=== PATIENT | female | born 1995 | race Caucasian/White ===

== ENCOUNTER 2017-07-13 08:33 | Observation (INO) | payer OTHER ==
--- NOTE | 2017-07-07 10:27 | HISTORY AND PHYSICAL E ---
History and Physical NAME: RONI METZGER : 1995 AGE: 22Y ADMITTED: 07/13/2017 ROOM: HISTORY OF PRESENT ILLNESS: The patient, 22 years old, presented with a chief complaint of blood in the stool, hemorrhoids, diarrhea, left lower quadrant abdominal pain, bloating. PAST SURGICAL HISTORY: Negative. MEDICATIONS: 1. Celexa. 2. Naproxen. 3. The patient takes control. 4. Ibuprofen. SOCIAL HISTORY: Tobacco: She dips. Alcohol: Negative. FAMILY HISTORY: Father is alive, history is unknown. Mom is alive. REVIEWING OF SYSTEMS: HEAD, EYES, EARS, NOSE, THROAT: Eye glasses. RESPIRATORY: Negative. CARDIAC: Negative. GASTROINTESTINAL: Diarrhea. Right-side abdominal pain, hemorrhoid, bloating, blood in the stool. NEUROPSYCHIATRIC: Anxiety, depression, insomnia. PHYSICAL EXAMINATION: GENERAL: Pleasant, alert, oriented. VITAL SIGNS: Blood pressure 90/60, pulse 70, temperature is 98. HEAD, EYES, EARS, NOSE, THROAT: Normal. NECK: Supple. CARDIOVASCULAR: Normal. LUNGS: Clear. ABDOMEN: Soft. NEUROLOGIC: Negative. CONCLUSION: 1. Diarrhea. 2. Hemorrhoid. 3. Abdominal pain. PLAN: Colonoscopy to be done in the OR with anesthesia standby. Gallbladder ultrasound. DICTATING PHYSICIAN: OMAR TARANGO M.D. [id number] Y#: [id number] ID: [id number] JOB#: [id number] ACCT: [id number] cc:OMAR TARANGO M.D. >
[2017-07-10 11:15] LABS: HEMATOCRIT 42.6 % (36.0-47.0); HEMOGLOBIN 14.4 g/dL (12.0-15.5); HGB HCT DIFFERENCE 0.6; MEAN CORPUSCULAR HEMOGLOBIN 30.1 pg (27.0-33.4); MEAN CORPUSCULAR HGB CONC 33.8 g/dL (32.0-36.0); MEAN CORPUSCULAR VOLUME 89 fl (80-97); RED BLOOD COUNT 4.78 10^6/uL (3.72-5.28); RED CELL DISTRIBUTION WIDTH 12.6 % (11.5-14.0); WHITE BLOOD COUNT 5.4 10^3/uL (4.0-10.5)
[~2017-07-13 08:33] MED LIST: GLUCAGON,HUMAN RECOMB 1 MG INJ ONE; LIDOCAINE 0.5% INJ-PF (5 MG/ML) 50 ML SDV SUBCUT PRN; LIDOCAINE 2% JELLY 30 ML TUBE ONE; RINGERS SOLUTION,LACTATED 1,000 ML IV PRN
[2017-07-13] MEDS ORDERED: MIDAZOLAM 2 MG/2 ML INJ ONE (10:46)
[2017-07-13] MEDS ORDERED: FENTANYL CITRATE INJ/PF 100 MCG/2 ML AMPUL ONE (10:46)
[2017-07-13] MEDS ORDERED: PROPOFOL INJ 200 MG/20 ML VIAL IV ONE (10:47)
[2017-07-13] MEDS ORDERED: DIPHENHYDRAMINE HCL 50 MG/ML VIAL IV PRN (10:49)
[2017-07-13] MEDS ORDERED: MEPERIDINE HCL/PF INJ 25 MG/1 ML DISP.SYRIN IV PRN (10:49)
[2017-07-13] MEDS ORDERED: OXYCODONE-ACETAMINOPHEN 5-325 MG TABLET PO PRN ×2 (10:49)
[2017-07-13] MEDS ORDERED: FENTANYL CITRATE INJ/PF 100 MCG/2 ML AMPUL IV PRN ×3 (10:49)
[2017-07-13] MEDS ORDERED: MORPHINE SULFATE 10 MG/ML INJ IV PRN (10:49)
[2017-07-13] MEDS ORDERED: PROMETHAZINE HCL INJ 25 MG/1 ML VIAL IV PRN ×3 (10:49→12:00)
[2017-07-13] MEDS ORDERED: LIDOCAINE 2% VISCOUS SOLN 20 ML UDCUP PO PRN (11:43)
[2017-07-13] MEDS ORDERED: ACETAMINOPHEN 325 MG TABLET PO PRN (11:43)
[2017-07-13] MEDS: FENTANYL CITRATE INJ/PF 100 MCG/2 ML AMPUL ONE ×2 (11:48→11:53)
[2017-07-13] MEDS ORDERED: LIDOCAINE 2% INJ-PF (20 MG/ML) 10 ML AMPUL ONE (12:00)
[2017-07-13] MEDS ORDERED: ONDANSETRON HCL INJ/PF 4 MG/2 ML SDV ONE (12:00)
[2017-07-13] MEDS ORDERED: SIMETHICONE 80 MG TAB.CHEW PO PRN (12:00)
[2017-07-13] MEDS ORDERED: GLYCOPYRROLATE INJ 0.4 MG/2 ML VIAL ONE (12:00)
[2017-07-13] MEDS ORDERED: LIDOCAINE 2% JELLY 5 ML TUBE PR ONE (13:30)
[2017-07-13 13:50] LABS: ABSOLUTE EOSINOPHILS # (AUTO) 0.1 10^3/uL (0.0-0.6); ABSOLUTE LYMPHOCYTES (AUTO) 2.5 10^3/uL (0.5-4.7); ABSOLUTE MONOCYTES (AUTO) 0.5 10^3/uL (0.1-1.4); ABSOLUTE NEUT (AUTO) 4.6 10^3/uL (1.7-8.2); BASOPHILS % (AUTO) 0.6 % (0-2); EOSINOPHILS % (AUTO) 0.7 % (0-6); HEMATOCRIT 41.5 % (36.0-47.0); HEMOGLOBIN 14.2 g/dL (12.0-15.5); HGB HCT DIFFERENCE 1.1; MEAN CORPUSCULAR HEMOGLOBIN 29.8 pg (27.0-33.4); MEAN CORPUSCULAR HGB CONC 34.3 g/dL (32.0-36.0); MEAN CORPUSCULAR VOLUME 87 fl (80-97); MONOCYTES % (AUTO) 6.5 % (3-13); RED BLOOD COUNT 4.78 10^6/uL (3.72-5.28); RED CELL DISTRIBUTION WIDTH 12.4 % (11.5-14.0); SEGMENTED NEUTROPHILS % (AUTO) 59.2 % (42-78); WHITE BLOOD COUNT 7.7 10^3/uL (4.0-10.5)
[2017-07-13 14:26] LABS: ERYTHROCYTE SEDIMENTATION RATE 6 mm/hr (0-20)
--- NOTE | 2017-07-13 16:45 | PDOC CONSULTATION ---
History of Present Illness Patient complains of: Rectal pain History of Present Illness: RONI METZGER is a 22 year old female Who presented with 2 year history of intermittent diarrhea. With diarrhea occurring about 15-20 times in a day with very loose watery bowel movements. She has had some lower abdominal discomfort as well no fever no nausea or vomiting. She also has intermittent perianal pain with rare episodes of blood per rectum. She denies any weight loss. Denies any abdominal surgeries. Patient underwent colonoscopy today which was uneventful with no significant findings. She was noted post operatively with that worsened anal pain and general surgery now being consulted. In speaking with the endoscopist there were no difficulties during the scope and no suspicion of colon injury. Past Medical History Cardiac Medical History: Denies: Coronary Artery Disease, Myocardial Infarction, Hypertension Pulmonary Medical History: Denies: Asthma, Bronchitis, Chronic Obstructive Pulmonary Disease (COPD), Pneumonia Neurological Medical History: Denies: Seizures Musculoskeltal Medical History: Denies: Arthritis Psychiatric Medical History: Reports: Depression Hematology: Denies: Anemia Social History Smoking Status: Former Smoker Frequency of Alcohol Use: None Family History Parental Family History Reviewed: No Children Family History Reviewed: No Sibling(s) Family History Reviewed.: No Medication/Allergy Home Medications: Citalopram Hydrobromide [Celexa 40 mg Tablet] 1 tab PO DAILY 07/07/17 Doxepin HCl [Sinequan 10 Mg Capsule] 6 mg PO DAILY 07/07/17 Etonogestrel [Nexplanon] 68 mg SQ 07/07/17 Allergies/Adverse Reactions: latex Allergy (Verified 07/07/17 09:45) Unknown reaction Physical Exam Vital Signs: Temp Pulse Resp BP Pulse Ox 98.1 F 72 16 111/71 97 07/13/17 12:25 07/13/17 15:25 07/13/17 15:25 07/13/17 15:25 07/13/17 15:25 Intake & Output 07/12/17 07/13/17 07/14/17 06:59 06:59 06:59 Intake Total 700 Output Total 0 Balance 700 Weight 62.6 kg General appearance: PRESENT: no acute distress - Patient sitting up in bed comfortably eating lunch., cooperative Eye exam: PRESENT: conjunctiva pink Respiratory exam: PRESENT: clear to auscultation celeste Cardiovascular exam: PRESENT: RRR GI/Abdominal exam: PRESENT: other - Soft, nondistended, very minimal lower abdominal tenderness with no peritoneal signs. Abdomen is flat. Rectal exam: PRESENT: other - No hemorrhoidal prolapse. Perianal region looks normal with no erythema no fluctuance no induration. Digital rectal exam reveals normal anal sphincter tone with no palpable fissure nor masses. The anal canal feels very smooth. Patient has some tenderness posteriorly but again no palpable fluctuance nor masses. Results Laboratory Results: 07/13/17 13:41 07/13/17 07/13/17 13:41 13:41 WBC 7.7 RBC 4.78 Hgb 14.2 Hct 41.5 MCV 87 MCH 29.8 MCHC 34.3 RDW 12.4 Plt Count 296 Seg Neutrophils % 59.2 Lymphocytes % 33.0 Monocytes % 6.5 Eosinophils % 0.7 Basophils % 0.6 Absolute Neutrophils 4.6 Absolute Lymphocytes 2.5 Absolute Monocytes 0.5 Absolute Eosinophils 0.1 Absolute Basophils 0.0 C-Reactive Protein < 5.0 Assessment & Plan - Diagnosis (1) Diarrhea Qualifiers: Diarrhea type: unspecified type Qualified Code(s): R19.7 - Diarrhea, unspecified Is this a current diagnosis for this admission?: Yes Plan: Of unclear etiology. With the profound nature of her diarrhea for 2 years I do recommend referral to a tertiary care center for further workup. This can be done as an outpatient. (2) Rectal pain, chronic Is this a current diagnosis for this admission?: Yes Plan: Nothing found on physical exam. Her vital signs and her abdominal and rectal exam and overall clinical appearance demonstrates no evidence of colon or rectal injury during the endoscopy, especially with nothing concerning during the endoscopy as per the endoscopist. The rectal pain is a chronic condition and I would recommend referral to colorectal surgery as an outpatient. It could represent proctalgia fugax. I have discussed all of my recommendation with Dr. Farmer and the patient. And the patient feels well and wants to go home.
[2017-07-13] MEDS ORDERED: HYDROCODONE/ACETAMINOPHEN 5-325 MG TABLET PO ONE (17:30)
[2017-07-13 21:38] VITALS: BP 114/81
--- NOTE | 2017-07-14 09:59 | DISCHARGE SUMMARY E ---
Discharge Summary NAME: RONI METZGER : 1995 AGE: 22Y ADMITTED: 07/13/2017 DISCHARGED: 07/13/2017 FINAL DIAGNOSIS: EXTERNAL HEMORRHOIDS. HISTORY: This 22-year-old female presented to us with rectal bleeding. FINDINGS: Today's colonoscopy done in the OR with anesthesia standby showing external hemorrhoids with no polyps, no bleeding, no malignancy. Mild proctitis and external hemorrhoids. Patient tolerated procedure well. Patient's white count shows 5.4, hemoglobin 14.4, hematocrit 42.4. CONCLUSION: RECTAL BLEEDING, ETIOLOGY UNDETERMINED; MOST LIKELY SECONDARY TO EXTERNAL HEMORRHOIDS AND PROCTITIS. PLAN: 1. Will discharge to her room in stable condition. 2. I am going to do blood tests/serology for inflammatory bowel disease. Repeat CRP and CBC with sed rate. DICTATING PHYSICIAN: OMAR TARANGO M.D. [id number] PHY#: [id number] ID: [id number] JOB#: [id number] ACCT: [id number] cc:[facility] OMAR TARANGO M.D. >
--- NOTE | 2017-07-14 10:12 | OPERATIVE REPORT E ---
Operative Report NAME: RONI METZGER : 1995 AGE: 22Y DATE OF SURGERY: 07/13/2017 ROOM: 436 PREOPERATIVE DIAGNOSIS: RECTAL BLEEDING. POSTOPERATIVE DIAGNOSES: 1. EXTERNAL HEMORRHOIDS, MILD. 2. PROCTITIS, MILD. OPERATION: Colonoscopy. SURGEON: OMAR TARANGO M.D. ANESTHESIA: Done in the OR, with Anesthesia standby. TISSUE REMOVED OR ALTERED: None. PROCEDURE/FINDINGS: RECTAL EXAM: External hemorrhoids and proctitis. RECTUM, SIGMOID, DESCENDING COLON: Normal. TRANSVERSE COLON: Normal. ASCENDING COLON: Normal. CECUM: Normal. Scope withdrawn cecum and ascending, transverse, descending, sigmoid, all the way to the rectum. Patient tolerated the procedure well. CONCLUSION: 1. EXTERNAL HEMORRHOIDS, MILD. 2. PROCTITIS, MILD. 3. NO EVIDENCE OF BLEEDING. PLAN: Discharged to the room in stable condition. DICTATING PHYSICIAN: OMAR TARANGO M.D. [id number] PHY#: [id number] ID: [id number] JOB#: [id number] ACCT: [id number] cc:[facility] OMAR TARANGO M.D. >
--- NOTE | 2017-07-14 16:24 | RADIOLOGY REPORT (SQ) ---
EXAM DESCRIPTION: KUB/ABDOMEN (SINGLE VIEW) COMPLETED DATE/TIME: 07/13/2017 5:54 pm REASON FOR STUDY: Upright, Rule out perforation from colonoscopy R10.9 UNSPECIFIED ABDOMINAL PAIN COMPARISON: None. NUMBER OF VIEWS: One view. TECHNIQUE: Supine radiographic image of the abdomen acquired. LIMITATIONS: None. FINDINGS: BOWEL GAS PATTERN: Normal bowel gas pattern. No dilated loops. No evidence for free intra peritoneal air is seen. CALCIFICATIONS: No suspicious calcifications. SOFT TISSUES: No gross mass or suggestion of organomegaly. HARDWARE: None in the abdomen. BONES: No acute fracture. No worrisome bone lesions. OTHER: No other significant finding. IMPRESSION: NO RADIOGRAPHIC EVIDENCE FOR ACUTE ABDOMINAL DISEASE. TECHNICAL DOCUMENTATION: JOB ID: [id number] [employer]- All Rights Reserved
== END 2017-07-13 22:00 | disposition home or self-care (01) ==
LOC: END 08:33 → 4S 15:00
PROVIDERS: ADMIT Specialist; ATTEND Specialist
PROC: 0DJD8ZZ Inspection of Lower Intestinal Tract, Via Natural or Artificial Opening Endoscopic (ICD-10-PCS; principal; 2017-07-13 11:00)
DX: K64.4 Residual hemorrhoidal skin tags (principal); K62.89 Other specified diseases of anus and rectum; K62.5 Hemorrhage of anus and rectum; R19.7 Diarrhea, unspecified; R10.32 Left lower quadrant pain; F41.9 Anxiety disorder, unspecified; F32.9 Major depressive disorder, single episode, unspecified; G47.00 Insomnia, unspecified; Z87.891 Personal history of nicotine dependence; Z79.899 Other long term (current) drug therapy; Z79.3 Long term (current) use of hormonal contraceptives; Z79.1 Long term (current) use of non-steroidal anti-inflammatories (NSAID)
CPT/HCPCS: 45378; 86256; 36415 ×2; 85025; 85027; 85652; 81025; 86140; 74000; G0378; G0379; J2250; J3010; J1610; J2405; J2704; J3490; 810

== ENCOUNTER 2017-07-15 10:12 | Emergency (ER) | payer OTHER ==
[2017-07-15 10:52] LABS: ABSOLUTE EOSINOPHILS # (AUTO) 0.1 10^3/uL (0.0-0.6); ABSOLUTE LYMPHOCYTES (AUTO) 2.5 10^3/uL (0.5-4.7); ABSOLUTE MONOCYTES (AUTO) 0.4 10^3/uL (0.1-1.4); BASOPHILS % (AUTO) 0.9 % (0-2); EOSINOPHILS % (AUTO) 2.3 % (0-6); HEMOGLOBIN 13.4 g/dL (12.0-15.5); HGB HCT DIFFERENCE 2.2; LYMPHOCYTES % (AUTO) 49.4 % (13-45); MEAN CORPUSCULAR HEMOGLOBIN 30.7 pg (27.0-33.4); MEAN CORPUSCULAR HGB CONC 35.2 g/dL (32.0-36.0); MEAN CORPUSCULAR VOLUME 88 fl (80-97); MONOCYTES % (AUTO) 8.1 % (3-13); RED BLOOD COUNT 4.34 10^6/uL (3.72-5.28); RED CELL DISTRIBUTION WIDTH 12.3 % (11.5-14.0); SEGMENTED NEUTROPHILS % (AUTO) 39.3 % (42-78); WHITE BLOOD COUNT 5.1 10^3/uL (4.0-10.5)
[2017-07-15 10:57] LABS: APPEARANCE,URINE SLIGHTLY-CLOUDY; BILIRUBIN,URINE NEGATIVE (NEGATIVE); GLUCOSE, URINE NEGATIVE (NEGATIVE); KETONES,URINE NEGATIVE (NEGATIVE); LEUKOCYTE ESTERASE,URINE NEGATIVE (NEGATIVE); NITRITE,URINE NEGATIVE (NEGATIVE); PROTEIN,URINE NEGATIVE (NEGATIVE); URINE SPECIFIC GRAVITY 1.004; UROBILINOGEN,URINE NEGATIVE mg/dL (<2.0)
[2017-07-15 11:14] LABS: ALANINE AMINOTRANSFERASE 23 U/L (9-52); ALBUMIN 4.3 g/dL (3.5-5.0); ALKALINE PHOSPHATASE 62 U/L (38-126); ANION GAP 6 (5-19); ASPARTATE AMINO TRANSFERASE 19 U/L (14-36); BILIRUBIN,DIRECT 0.3 mg/dL (0.0-0.4); BILIRUBIN,TOTAL 0.4 mg/dL (0.2-1.3); BLOOD UREA NITROGEN 8 mg/dL (7-20); CALCIUM 9.7 mg/dL (8.4-10.2); CARBON DIOXIDE 31 mmol/L (22-30); CHLORIDE 106 mmol/L (98-107); CREATININE RESULT 0.75 mg/dL (0.52-1.25); GLUCOSE 95 mg/dL (75-110); LIPASE 73.3 U/L (23-300); POTASSIUM 4.1 mmol/L (3.6-5.0); SODIUM 143.3 mmol/L (137-145); TOTAL PROTEIN 7.1 g/dL (6.3-8.2)
[2017-07-15] MEDS ORDERED: ONDANSETRON 4 MG TAB.RAPDIS PO ONE (11:41)
[2017-07-15] MEDS ORDERED: HYDROCODONE/ACETAMINOPHEN 5-325 MG TABLET PO ONE (11:41)
--- NOTE | 2017-07-15 11:44 | ER Document Report ---
ED General - General Chief Complaint: Abdominal Pain Stated Complaint: FLANK PAIN Time Seen by Provider: 07/15/17 10:51 Mode of Arrival: Ambulatory Information source: Patient Notes: 22-year-old female presents with complaints of right upper quadrant abdominal pain that worsened this morning. Patient notes she had a recent ultrasound noting sludge. Pt notes no fever or chills. TRAVEL OUTSIDE OF THE [place] IN LAST 30 DAYS: No - HPI Onset: Just prior to arrival Onset/Duration: Sudden Quality of pain: Achy Severity: Mild Pain Level: 1 Associated symptoms: None Exacerbated by: Food Relieved by: Denies Similar symptoms previously: Yes Recently seen / treated by doctor: Yes - Related Data Allergies/Adverse Reactions: latex Allergy (Verified 07/15/17 10:25) Unknown reaction Home Medications: Current Home Medications Doxepin HCl [Silenor] 1 tab PO DAILY 07/15/17 [History] Hydrocodone/Acetaminophen [Hydrocodon-Acetaminophen 5-325] 1 tab PO BID [History] Past Medical History - Social History Smoking Status: Never Smoker Cigarette use (# per day): No Chew tobacco use (# tins/day): No Smoking Education Provided: No Frequency of alcohol use: None Drug Abuse: None Family History: Reviewed & Not Pertinent - Past Medical History Cardiac Medical History: Denies: Hx Coronary Artery Disease, Hx Heart Attack, Hx Hypertension Pulmonary Medical History: Denies: Hx Asthma, Hx Bronchitis, Hx COPD, Hx Pneumonia Neurological Medical History: Denies: Hx Cerebrovascular Accident, Hx Seizures Renal/ Medical History: Denies: Hx Peritoneal Dialysis Musculoskeltal Medical History: Denies Hx Arthritis Psychiatric Medical History: Reports: Hx Depression Surgical Hx: Negative - Immunizations Hx Diphtheria, Pertussis, Tetanus Vaccination: Yes Review of Systems - Review of Systems Notes: REVIEW OF SYSTEMS: CONSTITUTIONAL : Denies fever, chills, or sweats. Denies recent illness. EENT: Denies eye, ear, throat, or mouth pain or symptoms. Denies nasal or sinus congestion or discharge. Denies throat, tongue, or mouth swelling or difficulty swallowing. CARDIOVASCULAR: Denies chest pain. Denies palpitations or racing or irregular heart beat. Denies ankle edema. RESPIRATORY: Denies cough, cold, or chest congestion. Denies shortness of breath, difficulty breathing, or wheezing. GASTROINTESTINAL: Admits to abdominal pain nausea GENITOURINARY: Denies difficulty urinating, painful urination, burning, frequency, blood in urine, or discharge. FEMALE GENITOURINARY: Denies vaginal bleeding, heavy or abnormal periods, irregular periods. Denies vaginal discharge or odor. MUSCULOSKELETAL: Denies back or neck pain or stiffness. Denies joint pain or swelling. SKIN: Denies rash, lesions or sores. HEMATOLOGIC : Denies easy bruising or bleeding. LYMPHATIC: Denies swollen, enlarged glands. NEUROLOGICAL: Denies confusion or altered mental status. Denies passing out or loss of consciousness. Denies dizziness or lightheadedness. Denies headache. Denies weakness or paralysis or loss of use of either side. Denies problems with gait or speech. Denies sensory loss, numbness, or tingling. Denies seizures. PSYCHIATRIC: Denies anxiety or stress. Denies depression, suicidal ideation, or homicidal ideation. ALL OTHER SYSTEMS REVIEWED AND NEGATIVE. PHYSICAL EXAMINATION: GENERAL: Well-appearing, well-nourished and in no acute distress. HEAD: Atraumatic, normocephalic. EYES: Pupils equal round and reactive to light, extraocular movements intact, conjunctiva are normal. ENT: Nares patent, oropharynx clear without exudates. Moist mucous membranes. NECK: Normal range of motion, supple without lymphadenopathy LUNGS: Breath sounds clear to auscultation bilaterally and equal. No wheezes rales or rhonchi. HEART: Regular rate and rhythm without murmurs ABDOMEN: Soft, minimally tender i nthe ruq no rebound or guarding Female : deferred Musculoskeletal: Normal range of motion, no pitting or edema. No cyanosis. NEUROLOGICAL: Cranial nerves grossly intact. Normal speech, normal gait. Normal sensory, motor exams PSYCH: Normal mood, normal affect. SKIN: Warm, Dry, normal turgor, no rashes or lesions noted. Dictation was performed using [employer] voice recognition software Physical Exam - Vital signs Vitals: Temp Pulse Resp BP Pulse Ox 97.9 F 76 16 103/48 L 100 07/15/17 10:15 07/15/17 10:15 07/15/17 10:15 07/15/17 10:15 07/15/17 10:15 Course - Re-evaluation Re-evalutation: 07/15/17 11:44 Labwork notes no significant abnormality, ultrasound is pending at this time 07/15/17 12:51 Ultrasound noted no acute abnormality, patient will be given follow-up with surgical list as well as her GI specialist for reevaluation After performing a Medical Screening Examination, I estimate there is LOW risk for ACUTE APPENDICITIS, BOWEL OBSTRUCTION, ACUTE CHOLECYSTITIS, PERFORATED DIVERTICULITIS, INCARCERATED HERNIA, PANCREATITIS, PELVIC INFLAMMATORY DISEASE, PERFORATED ULCER, ECTOPIC , or TUBO-OVARIAN ABSCESS, thus I consider the discharge disposition reasonable. Also, there is no evidence or peritonitis , sepsis, or toxicity. I have reevaluated this patient multiple times and no significant life threatening changes are noted. The patient and I have discussed the diagnosis and risks, and we agree with discharging home with close follow-up with the understanding that symptoms and presentations can change. We also discussed returning to the Emergency Department immediately if new or worsening symptoms occur. We have discussed the symptoms which are most concerning (e.g., bloody stool, fever, changing or worsening pain, vomiting) that necessitate immediate return. - Vital Signs Vital signs: Temp Pulse Resp BP Pulse Ox 97.9 F 76 16 103/48 L 100 07/15/17 10:15 07/15/17 10:15 07/15/17 10:15 07/15/17 10:15 07/15/17 10:15 - Laboratory Result Diagrams: 07/15/17 10:31 07/15/17 10:31 Laboratory results interpreted by me: 07/15/17 07/15/17 10:31 10:31 Seg Neutrophils % 39.3 L Lymphocytes % 49.4 H Carbon Dioxide 31 H - Diagnostic Test Radiology reviewed: Image reviewed, Reports reviewed - report given to patient Discharge - Discharge Clinical Impression: RUQ pain Condition: Stable Disposition: HOME, SELF-CARE Instructions: Gallbladder Disease ([facility]), Low-Fat Diet ([facility]) Prescriptions: Ondansetron [Zofran Odt 4 mg Tablet] 1 - 2 tab PO Q4H PRN #15 tab.rapdis PRN Reason: For Nausea/Vomiting Oxycodone HCl/Acetaminophen [Percocet 5-325 mg Tablet] 1 - 2 tab PO Q4H PRN #15 tablet PRN Reason: Referrals: JAVIER TORRES MD [ACTIVE STAFF] - Follow up tomorrow
--- NOTE | 2017-07-15 12:34 | RADIOLOGY REPORT (SQ) ---
EXAM DESCRIPTION: U/S ABDOMEN LIMITED W/O DOP COMPLETED DATE/TIME: 07/15/2017 12:24 pm REASON FOR STUDY: RUQ pain COMPARISON: KUB 07/15/2017 TECHNIQUE: Dynamic and static grayscale images acquired of the abdomen and recorded on PACS. Additio nal selected color Doppler and spectral images recorded. LIMITATIONS: Midline bowel gas FINDINGS: PANCREAS: Midline pancreas unremarkable LIVER: No masses. Echotexture normal. LIVER VASCULATURE: Normal directional flow of the main portal vein and hepatic veins. GALLBLADDER: No stones. Normal wall thickness. No pericholecystic fluid. ULTRASOUND-DETECTED SUN'S SIGN: Negative. INTRAHEPATIC DUCTS AND COMMON DUCT: CBD and intrahepatic ducts normal caliber. No filling defects. INFERIOR VENA CAVA: Normal flow. AORTA: No aneurysm. RIGHT KIDNEY: Normal size. Normal echogenicity. No solid or suspicious masses. No hydronephrosis. No calcifications. PERITONEAL AND RIGHT PLEURAL SPACE: No ascites or effusions. OTHER: No other significant findings. IMPRESSION: NORMAL RIGHT UPPER QUADRANT ULTRASOUND. TECHNICAL DOCUMENTATION: JOB ID: [id number] [employer]- All Rights Reserved
[2017-07-15 13:23] VITALS: BP 103/71
== END 2017-07-15 13:27 | disposition home or self-care (01) ==
LOC: ER 10:12
DX: R10.11 Right upper quadrant pain (principal)
CPT/HCPCS: 99284; 36415; 83690; 85025; 80053; 81001; 76705; S0119

== ENCOUNTER 2019-11-11 20:53 | Emergency (ER) | payer MEDICAID ==
--- NOTE | 2019-11-11 23:48 | ER Document Report ---
ED Medical Screen (RME) - General Chief Complaint: Bloody Stools Stated Complaint: BLOOD IN STOOL Time Seen by Provider: 11/11/19 23:43 Mode of Arrival: Ambulatory Information source: Patient Notes: 24-year-old female with history of hemorrhoids and IBS presents to the emergency department with complaints of severe hemorrhoids with rectal bleeding for the past 3 days. She reports she is tried her usual witch bell and other [id number]-kan-[id number] aids without relief of symptoms. Reports she has never had to have surgery on the hemorrhoids but she has had them for many many years. Patient reports she has not had a stool because she is afraid to have stool because it hurts so much. I have greeted and performed a rapid initial assessment of this patient. A comprehensive ED assessment and evaluation of the patient, analysis of test results and completion of the medical decision making process will be conducted by additional ED providers. Dictation of this chart was performed using voice recognition software; therefore, there may be some unintended grammatical errors. TRAVEL OUTSIDE OF THE [place] IN LAST 30 DAYS: No - Related Data Allergies/Adverse Reactions: latex Allergy (Verified 07/15/17 10:25) Unknown reaction Past Medical History - Past Medical History Cardiac Medical History: Denies: Hx Coronary Artery Disease, Hx Heart Attack, Hx Hypertension Pulmonary Medical History: Denies: Hx Asthma, Hx Bronchitis, Hx COPD, Hx Pneumonia Neurological Medical History: Denies: Hx Cerebrovascular Accident, Hx Seizures Renal/ Medical History: Denies: Hx Peritoneal Dialysis Musculoskeltal Medical History: Denies Hx Arthritis Psychiatric Medical History: Reports: Hx Depression - Immunizations Hx Diphtheria, Pertussis, Tetanus Vaccination: Yes Physical Exam - Vital signs Vitals: Temp Pulse Resp BP Pulse Ox 98.8 F 78 18 121/73 98 11/11/19 21:57 11/11/19 21:57 11/11/19 21:57 11/11/19 21:57 11/11/19 21:57 Course - Vital Signs Vital signs: Temp Pulse Resp BP Pulse Ox 98.8 F 78 18 121/73 98 11/11/19 21:57 11/11/19 21:57 11/11/19 21:57 11/11/19 21:57 11/11/19 21:57
[2019-11-12 00:51] LABS: ABSOLUTE BASOPHILS # (AUTO) 0.1 10^3/uL (0.0-0.2); ABSOLUTE EOSINOPHILS # (AUTO) 0.1 10^3/uL (0.0-0.6); ABSOLUTE LYMPHOCYTES (AUTO) 4.2 10^3/uL (0.5-4.7); ABSOLUTE MONOCYTES (AUTO) 0.7 10^3/uL (0.1-1.4); ABSOLUTE NEUT (AUTO) 3.4 10^3/uL (1.7-8.2); BASOPHILS % (AUTO) 0.9 % (0-2); EOSINOPHILS % (AUTO) 1.7 % (0-6); HEMATOCRIT 40.8 % (36.0-47.0); HEMOGLOBIN 13.8 g/dL (12.0-15.5); LYMPHOCYTES % (AUTO) 49.4 % (13-45); MEAN CORPUSCULAR HEMOGLOBIN 30.2 pg (27.0-33.4); MEAN CORPUSCULAR VOLUME 89 fl (80-97); MONOCYTES % (AUTO) 8.5 % (3-13); PLATELET COUNT 300 10^3/uL (150-450); RED BLOOD COUNT 4.58 10^6/uL (3.72-5.28); RED CELL DISTRIBUTION WIDTH 12.3 % (11.5-14.0); SEGMENTED NEUTROPHILS % (AUTO) 39.5 % (42-78); TOTAL CELLS COUNTED % (AUTO) 100 %; WHITE BLOOD COUNT 8.6 10^3/uL (4.0-10.5)
[2019-11-12 01:06] LABS: APPEARANCE,URINE SLIGHTLY-CLOUDY; BILIRUBIN,URINE NEGATIVE (NEGATIVE); COLOR,URINE YELLOW; GLUCOSE, URINE NEGATIVE (NEGATIVE); KETONES,URINE NEGATIVE (NEGATIVE); LEUKOCYTE ESTERASE,URINE TRACE (NEGATIVE); NITRITE,URINE NEGATIVE (NEGATIVE); PROTEIN,URINE NEGATIVE (NEGATIVE); URINE SPECIFIC GRAVITY 1.008; UROBILINOGEN,URINE NEGATIVE mg/dL (<2.0)
[2019-11-12 01:08] LABS: ALBUMIN 4.5 g/dL (3.5-5.0); ALKALINE PHOSPHATASE 58 U/L (38-126); ANION GAP 13 (5-19); ASPARTATE AMINO TRANSFERASE 21 U/L (14-36); BILIRUBIN,DIRECT 0.2 mg/dL (0.0-0.4); BILIRUBIN,TOTAL 0.3 mg/dL (0.2-1.3); BLOOD UREA NITROGEN 10 mg/dL (7-20); CALCIUM 9.8 mg/dL (8.4-10.2); CARBON DIOXIDE 28 mmol/L (22-30); CHLORIDE 101 mmol/L (98-107); GLUCOSE 99 mg/dL (75-110); POTASSIUM 3.9 mmol/L (3.6-5.0); TOTAL PROTEIN 7.5 g/dL (6.3-8.2)
[2019-11-12 01:56] VITALS: BP 116/73
== END 2019-11-12 02:08 | disposition left against medical advice (07) ==
LOC: ER 20:53
DX: K64.9 Unspecified hemorrhoids (principal); K62.5 Hemorrhage of anus and rectum; Z87.19 Personal history of other diseases of the digestive system; Z91.040 Latex allergy status; Z53.20 Procedure and treatment not carried out because of patient's decision for unspecified reasons
CPT/HCPCS: 36415; 80053; 81001; 81025; 85025; 99281

== ENCOUNTER 2020-02-25 23:50 | Emergency (ER) | payer OTHER, MEDICAID ==
[2020-02-26] MEDS ORDERED: BENZONATATE 100 MG CAPSULE PO ONE (00:20)
[2020-02-26] MEDS ORDERED: ALBUTEROL SULFATE HFA (90 MCG/PUFF) 8 GM MDI IH ONE (00:20)
--- NOTE | 2020-02-26 00:20 | ER Document Report ---
ED General - General Chief Complaint: Shortness Of Breath Stated Complaint: COUGH/CONGESTION Time Seen by Provider: 02/25/20 23:59 Mode of Arrival: Ambulatory Information source: Patient TRAVEL OUTSIDE OF THE [place] IN LAST 30 DAYS: No - HPI Onset: Other - over the last 2-3 days Onset/Duration: Gradual Quality of pain: Achy Severity: Moderate Pain Level: 2 Associated symptoms: Fever - low grade, Shortness of breath, Other - cough Exacerbated by: Coughing - makes her SOB worse Relieved by: Other - Tylenol has helped with fevers Similar symptoms previously: No Recently seen / treated by doctor: No Notes: 24 year old female with no significant PMH, no recent sick contacts, and no recent travel here for 2-3 days of cough, congestion, shortness of breath and and low grade fevers (Tmax of 100.4F). The patient denies urinary symptoms, productive cough, sore throat. The patient says coughing makes her shortness of breath worse. The patient says she called the [facility] COVID19 hotline and was told to come to the ER to be tested. The patient would like to know if she has COVID19 since she is supposed to have her son this upcoming and she does not want to expose him if she does have the virus. - Related Data Allergies/Adverse Reactions: latex Allergy (Verified 07/15/17 10:25) Unknown reaction Past Medical History - General Information source: Patient - Social History Smoking Status: Never Smoker Frequency of alcohol use: Occasional Drug Abuse: None Lives with: Other - patient has 2 Roommates Family History: Reviewed & Not Pertinent Patient has suicidal ideation: No Patient has homicidal ideation: No - Past Medical History Cardiac Medical History: Denies: Hx Coronary Artery Disease, Hx Heart Attack, Hx Hypertension Pulmonary Medical History: Denies: Hx Asthma, Hx Bronchitis, Hx COPD, Hx Pneumonia Neurological Medical History: Denies: Hx Cerebrovascular Accident, Hx Seizures Renal/ Medical History: Denies: Hx Peritoneal Dialysis Musculoskeletal Medical History: Denies Hx Arthritis Psychiatric Medical History: Reports: Hx Depression - Immunizations Hx Diphtheria, Pertussis, Tetanus Vaccination: Yes Review of Systems - Review of Systems Constitutional: Fever - low grade: Tmax of 100.4F EENT: No symptoms reported Cardiovascular: No symptoms reported Respiratory: Cough, Short of breath Gastrointestinal: No symptoms reported Genitourinary: No symptoms reported Female Genitourinary: No symptoms reported Musculoskeletal: No symptoms reported Skin: No symptoms reported Hematologic/Lymphatic: No symptoms reported Neurological/Psychological: No symptoms reported -: Yes All other systems reviewed and negative Physical Exam - Vital signs Vitals: Temp Pulse Resp BP Pulse Ox 98.4 F 81 20 126/75 H 100 02/25/20 23:59 02/25/20 23:59 02/25/20 23:59 02/25/20 23:59 02/25/20 23:59 - Notes Notes: GENERAL: Well-appearing, well-nourished and in no acute distress. Coughing during most of my exam. HEAD: Atraumatic, normocephalic. EYES: Pupils equal round and reactive to light, extraocular movements intact, sclera anicteric, conjunctiva are normal. ENT: Normal External appearing ears. Nares patent. Moist mucous membranes. NECK: Normal range of motion, supple without lymphadenopathy or JVD. LUNGS: Breath sounds clear to auscultation bilaterally and equal. No wheezes rales or rhonchi. HEART: Regular rate and rhythm without murmurs, rubs or gallops. ABDOMEN: Soft, nontender, normoactive bowel sounds. No guarding, no rebound. No masses appreciated. EXTREMITIES: Normal range of motion, no pitting or edema. No clubbing or cyanosis. NEUROLOGICAL: Cranial nerves II through XII grossly intact. Normal speech, normal gait. PSYCH: Normal mood, normal affect. SKIN: Warm, Dry, normal turgor, no rashes or lesions noted. Course - Re-evaluation Re-evalutation: 02/26/20 00:25 The patient is here for 2-3 days of a cough, congestion, shortness of breath, and low grade fevers. She tested negative for the flu, had a normal chest xray, but her COVID19 test is still pending. Patient told to self quarantine for 14 days or until she get a negative test result. Patient was given an albuterol inhaler in the ER as well as a dose of Tessalone Perles. - Vital Signs Vital signs: Temp Pulse Resp BP Pulse Ox 98.2 F 73 18 115/66 99 02/26/20 03:01 02/26/20 03:01 02/26/20 03:01 02/26/20 03:02/26/20 03:01 Discharge - Discharge Clinical Impression: Cough Upper respiratory infection Qualifiers: URI type: unspecified viral URI Qualified Code(s): J06.9 - Acute upper respiratory infection, unspecified Condition: Stable Disposition: HOME, SELF-CARE Instructions: Cough Suppressant & Expectorant Medications, Upper Respiratory Illness ([facility]) Additional Instructions: Self quarantine for 14 days or until you get your COVID19 test results. Use over the counter Tylenol for fevers along with over the counter cough medications. Use the prescribed Albuterol for trouble breathing. Follow up with your primary care doctor or one of the clinics/doctor offices listed in your paperwork.
[2020-02-26 00:54] LABS: A TYPE INFLUENZA AG NEGATIVE (NEGATIVE); B INFLUENZA AG NEGATIVE (NEGATIVE)
--- NOTE | 2020-02-26 01:17 | RADIOLOGY REPORT (SQ) ---
EXAM DESCRIPTION: XR CHEST 1 VIEW COMPLETED DATE/TME: 02/26/2020 00:25 CLINICAL HISTORY: 24 years, Female, eval for pneumonia COMPARISON: None. NUMBER OF VIEWS: 1 TECHNIQUE: Portable chest LIMITATIONS: None. FINDINGS: The heart size is normal. The lungs are clear. There is no pneumothorax IMPRESSION: Negative chest copyright 2011 [employer]- All Rights Reserved
[2020-02-26 03:05] VITALS: BP 115/66
== END 2020-02-26 03:03 | disposition home or self-care (01) ==
LOC: ER 23:50
DX: J06.9 Acute upper respiratory infection, unspecified (principal); B97.89 Other viral agents as the cause of diseases classified elsewhere; R06.02 Shortness of breath; R05 Cough; R50.9 Fever, unspecified; Z91.040 Latex allergy status; Z20.828 Contact with and (suspected) exposure to other viral communicable diseases
CPT/HCPCS: 99283; 87070; 87880; 87635; 87077; 87804; 71045; J3490

== ENCOUNTER 2020-09-18 08:00 | Day surgery (SDC) | payer OTHER, MEDICAID ==
[2020-09-14 14:22] LABS: APPEARANCE,URINE SLIGHTLY-CLOUDY; BILIRUBIN,URINE NEGATIVE (NEGATIVE); COLOR,URINE STRAW; GLUCOSE, URINE NEGATIVE (NEGATIVE); KETONES,URINE NEGATIVE (NEGATIVE); LEUKOCYTE ESTERASE,URINE NEGATIVE (NEGATIVE); NITRITE,URINE NEGATIVE (NEGATIVE); PROTEIN,URINE NEGATIVE (NEGATIVE); URINE SPECIFIC GRAVITY 1.005; UROBILINOGEN,URINE NEGATIVE mg/dL (<2.0)
[2020-09-14 14:23] LABS: HEMATOCRIT 39.1 % (36.0-47.0); HEMOGLOBIN 13.6 g/dL (12.0-15.5); MEAN CORPUSCULAR HEMOGLOBIN 30.4 pg (27.0-33.4); MEAN CORPUSCULAR HGB CONC 34.8 g/dL (32.0-36.0); MEAN CORPUSCULAR VOLUME 87 fl (80-97); PLATELET COUNT 294 10^3/uL (150-450); RED BLOOD COUNT 4.48 10^6/uL (3.72-5.28); RED CELL DISTRIBUTION WIDTH 12.6 % (11.5-14.0); WHITE BLOOD COUNT 6.5 10^3/uL (4.0-10.5)
[~2020-09-18 08:00] MED LIST changes: -GLUCAGON,HUMAN RECOMB 1 MG INJ ONE; +LACTATED RINGERS 1000 ML IV PRN; -LIDOCAINE 2% JELLY 30 ML TUBE ONE; -RINGERS SOLUTION,LACTATED 1,000 ML IV PRN
[2020-09-18] MEDS ORDERED: FENTANYL CITRATE INJ/PF 100 MCG/2 ML AMPUL ONE ×2 (10:23→12:02)
[2020-09-18] MEDS ORDERED: MIDAZOLAM 2 MG/2 ML INJ ONE (10:24)
[2020-09-18] MEDS ORDERED: PROPOFOL INJ 200 MG/20 ML VIAL IV ONE (10:24)
[2020-09-18] MEDS ORDERED: RINGERS SOLUTION,LACTATED 1,000 ML IV PRN (11:26)
[2020-09-18] MEDS ORDERED: KETOROLAC TROMETHAMINE INJ/PF 30 MG/1 ML SDV IV PRN (11:26)
[2020-09-18] MEDS ORDERED: IBUPROFEN 800 MG TABLET PO PRN (11:26)
[2020-09-18] MEDS ORDERED: OXYCODONE-ACETAMINOPHEN 5-325 MG TABLET PO PRN ×2 (11:26)
[2020-09-18] MEDS ORDERED: MEPERIDINE HCL/PF INJ 25 MG/1 ML DISP.SYRIN IV PRN (11:30)
[2020-09-18] MEDS ORDERED: DIPHENHYDRAMINE HCL 50 MG/ML VIAL IV PRN (11:30)
[2020-09-18] MEDS ORDERED: MORPHINE SULFATE 10 MG/ML INJ IV PRN (11:30)
[2020-09-18] MEDS ORDERED: PROMETHAZINE HCL INJ 25 MG/1 ML VIAL IV PRN ×2 (11:30)
[2020-09-18] MEDS ORDERED: FENTANYL CITRATE INJ/PF 100 MCG/2 ML AMPUL IV PRN ×2 (11:30)
--- NOTE | 2020-09-18 11:30 | Operative Report ---
Operative Report DATE OF SURGERY: 09/18/20 PREOPERATIVE DIAGNOSIS: Patient desires surgical sterilization POSTOPERATIVE DIAGNOSIS: Same OPERATION: Laparoscopic bilateral tubal cautery SURGEON: BRIAN RAMIREZ ANESTHESIA: GA TISSUE REMOVED OR ALTERED: Fallopian tubes COMPLICATIONS: Bradycardia ESTIMATED BLOOD LOSS: Minimal INTRAOPERATIVE FINDINGS: Normal uterus tubes and ovaries PROCEDURE: Patient was taken the OR and placed in supine position. General anesthesia was induced. She is placed in the dorsolithotomy position using Emile stirrups. Her abdomen perineum vagina were prepared and draped in sterile fashion. Her bladder was drained with a red rubber catheter. A sponge stick was placed in the vagina for manipulation of the uterus. An incision was made the umbilicus natural umbilical defect was identified and dilated with Becki clamp. This allowed placement of the blunt port. Laparoscopy confirmed appropriate placement. At this point the patient had episode of bradycardia and the procedure was stopped until her heart rate recovered to normal levels. Next the abdomen was insufflated with CO2 gas. Each fallopian tube was identified and followed out to its fimbriated end for anatomic identification. Each tube was then cauterized at the mid isthmic portion moving back toward the uterine cornu with 5 successive bites. Photos were taken at the end of the case the gas allowed to escape from the abdomen. The port and scope were removed at the same time. The fascia at the umbilicus was closed with 2-0 Vicryl stitch and the skin closed with a 4-0 undyed Vicryl stitch. The sponge stick was removed from the vagina. She is placed back in supine position extubated in the OR and taken recovery in stable condition.
--- NOTE | 2020-09-18 11:33 | Discharge Summary ---
Discharge Summary (SDC) - Discharge Final Diagnosis: Encounter for tubal ligation Date of Surgery: 09/18/20 Discharge Date: 09/18/20 Condition: Good Prescriptions: Oxycodone HCl/Acetaminophen [Percocet 5-325 mg Tablet] 1 tab PO Q4HP PRN #20 tablet PRN Reason: Ibuprofen [Motrin 800 mg Tablet] 800 mg PO Q8H PRN #30 tablet PRN Reason: Referrals: [facility] [[facility]] - Discharge Diet: Regular Discharge Activity: Balance Activity w/Rest, Slowly Increase Activity Report the Following to Your Physician Immediately: Fever over 101 Degrees
[2020-09-18] MEDS ORDERED: OXYCODONE-ACETAMINOPHEN 5-325 MG TABLET ONE (12:47)
[2020-09-18] MEDS ORDERED: SUCCINYLCHOLINE CHLORIDE INJ 200 MG/10 ML VIAL ONE (13:25)
[2020-09-18] MEDS ORDERED: ONDANSETRON HCL INJ/PF 4 MG/2 ML SDV ONE (13:25)
[2020-09-18] MEDS ORDERED: GLYCOPYRROLATE 1 MG/5 ML VIAL ONE (13:25)
[2020-09-18] MEDS ORDERED: LIDOCAINE 2% INJ-PF (20 MG/ML) 2 ML AMPUL ONE (13:25)
[2020-09-18] MEDS ORDERED: ROCURONIUM BROMIDE INJ 50 MG/5 ML VIAL IV ONE (13:25)
[2020-09-18 15:11] VITALS: BP 106/69
== END 2020-09-18 13:49 | disposition home or self-care (01) ==
LOC: OROUT 08:00
PROVIDERS: ATTEND Obstetrics & Gynecology
DX: Z30.2 Encounter for sterilization (principal); R00.1 Bradycardia, unspecified; Z79.3 Long term (current) use of hormonal contraceptives; Z87.891 Personal history of nicotine dependence; Z20.828 Contact with and (suspected) exposure to other viral communicable diseases
CPT/HCPCS: 36415; 85027; 87635; 81005; 81025; 58670; J2250; J3490 ×3; J3010; J0330; J2405; J2704; C9803; 851